=== PATIENT | female | born 1935 | race Caucasian/White ===

== ENCOUNTER 2016-10-27 03:30 | Inpatient (IN) | payer MEDICARE, OTHER ==
[2016-10-25 15:25] LABS: ASCORBIC ACID (UR NOT ORDER) NEG (NEG); BILIRUBIN, URINE NEGATIVE (NEG); KETONE, URINE NEGATIVE (NEG)
--- NOTE | ~2016-10-27 | DS ---
Discharge Summary [facility] [address] [place]. [address] NAME: NANCY GONZALES : 31 STATUS : DIS IN PAT#: [id number] AGE: 81 ADM/REG DATE : 10/27/16 MR#: [id number] REPORT SERV DATE: 11/05/16 DICTATED BY: MICAELA MEYERS DATE: 11/04/16 REPORT STATUS : Draft TRANSCRIBED BY: JOSELIN DATE: 11/04/16 Data Collection from hospitalization DISCHARGE DIAGNOSES: 1. Altered mental status - resolving. 2. Diarrhea - resolving. 3. Cough. 4. Possible community-acquired pneumonia. 5. Pyuria. 6. History of paroxysmal atrial fibrillation with anticoagulation therapy. 7. Parkinson's disease. 8. Anemia, secondary to chronic disease. 9. Hematuria. 10.Insomnia. 11.Urinary retention. 12.Anxiety and depression. 13.History of orthostatic hypotension. 14.Constipation. 15.History of paroxysmal atrial fibrillation. 16.Osteoarthritis. 17.Congestive heart failure. 18.Dementia. CONSULTATIONS: None. PROCEDURES: None. DISCHARGE MEDICATIONS: Eliquis 2.5 mg twice a day, aspirin 325 mg daily, Lipitor 80 mg at bedtime, Sinemet 1-1/2 tablets at noon, Sinemet one tablet at bedtime, Sinemet two tablets every morning, vitamin D3 of 1000 units daily, Cymbalta 60 mg daily, Zaditor one drop twice a day in both eyes, Levaquin 750 mg for six days as instructed, levothyroxine 150 mcg daily, Claritin 10 mg daily, Remeron 7.5 mg at bedtime, Singulair 10 mg daily, Prilosec 20 mg daily, MiraLAX powder one packet daily, Rythmol 150 mg every 8 hours, Spiriva HandiHaler one capsule via inhaler daily as instructed, ProAmatine 10 mg three times a day, Breo Ellipta one puff via inhaler daily, Ultram 25 mg every 8 hours as needed, DuoNeb inhaled solution one nebulized inhaler every four hours as instructed, MiraLAX suppository daily as needed for complaints of constipation. CONDITION AT DISCHARGE: Stable. DISPOSITION: The patient was discharged to [facility] on a mechanical soft diet with activities as instructed. HOSPITAL COURSE: This is an 81-year-old female who was transferred from [facility] to the [facility] Emergency Room for an altered mental status and increased confusion, low-grade fever, and cough. The patient had a decreased mental status, and we were unable to obtain a complete medical history, social history, or surgical history. The patient's director decision support reports that she was noted to have increased cough over the past few days prior to admission Discharge Summary [address] [place]. [address] NAME: NANCY GONZALES : 31 STATUS : DIS IN PAT#: [id number] AGE: 81 ADM/REG DATE : 10/27/16 MR#: [id number] REPORT SERV DATE: 11/05/16 DICTATED BY: MICAELA MEYERS DATE: 11/04/16 REPORT STATUS : Draft TRANSCRIBED BY: JOSELIN DATE: 11/04/16 and she had a low-grade fever on the day prior to this admission as well as a poor appetite and some diarrhea but this had improved. She had used MiraLAX. She reports that she was on several other laxatives such as milk of magnesia. The patient's director decision support also reported that she had been talking more and coherent on the day of this admission. She was admitted to the hospital at this time for further evaluation and treatment. Upon admission, the patient's urinalysis was positive, but I felt this could be secondary to dehydration. We would repeat the urinalysis once the patient has had IV fluid therapy. IV fluid therapy continued. It was changed from normal saline to D5 normal saline. Followup urine culture would be obtained. Azithromycin and Rocephin were continued for now. She was changed from a regular diet to a pureed diet for now. Aspiration precautions were in place. Rythmol was continued for heart rate and rhythm control. Protein supplementation will be given. The patient is a full code at this time. The following day, she had occasional shortness of breath and a productive cough. The patient denied any chest pain, nausea, vomiting, or abdominal pain. White count was 6.9. We encouraged oral fluid intake. On the 2nd, she seemed to be breathing better. She had no complaints of shortness of breath. She said she did not sleep well the previous evening. The patient requested that her Xanax be resumed at bedtime. IV fluids were decreased. Discharge planning was performed. On 10/30/2016, she said she had slept better the previous evening. She reported that her cough had improved, and she was bringing things up. Diarrhea was resolving. Her altered mental status was also resolving. Discharge instructions were given. MiraLAX was continued. She was evaluated by Physical Therapy. Due to her improved and stable condition, she was discharged to [facility] with the above-stated instructions. Information collected by: Gina Baxter I submit the above information as my discharge summary. SATNAM/JOSELIN Micaela Meyers M.D. / [id number] CC: [facility]
--- NOTE | ~2016-10-27 | HP ---
History And Physical [facility] [address] [place]. [address] NAME: NANCY GONZALES : 31 STATUS : ADM IN [facility]#: [id number] AGE: 81 ADM/REG DATE : 10/27/16 MR#: [id number] REPORT SERV DATE: 10/27/16 DICTATED BY: MICAELA MEYERS DATE: 10/27/16 REPORT STATUS : Draft TRANSCRIBED BY: JOSELIN DATE: 10/27/16 DATE OF ADMISSION: 10/27/2016 CHIEF COMPLAINT: Altered mental status. HISTORY OF PRESENT ILLNESS: The patient is an 81-year-old female, transferred from [facility] to [facility] ER for altered mental status, increased confusion, low-grade fever, and cough. The patient with decreased mental status, unable to obtain complete medical history, social history, surgical history. Most of the information obtained from reviewing medical records from previous admission to [facility] as well as channel process supervisor who is present at the bedside. The patient's channel process supervisor reports that the patient is noted to have increased cough in the last few days, had a low-grade fever yesterday, poor appetite, had complained of some diarrhea, but that has improved, and is okay with the use of MiraLAX. She reports she was on several other laxatives such as milk of magnesia. Spooling Supervisor also reports that the patient is talking more incoherent. The patient is well known to our service from previous hospitalization at [facility]. ALLERGIES: NO KNOWN DRUG ALLERGIES. CODE STATUS: Full code. This was confirmed by the patient's channel process supervisor. We will ensure a POLST form is completed and filed in chart. MEDICATIONS: Reviewed home medications. We will continue home med regimen of apixaban 2.5 mg b.i.d., Rythmol, aspirin, Lipitor, Sinemet, DuoNeb breathing treatment q.4 hours, Spiriva daily, Breo Ellipta inhalation daily, midodrine three times a day, Cymbalta, Remeron, Singulair, and Prilosec. PAST MEDICAL HISTORY: Positive for history of chest pain, valvular heart disease with mitral valve replacement, asthma, osteoarthritis, congestive heart failure, unknown type, dementia, Parkinson disease, hypothyroidism, lumbosacral radiculopathy, scoliosis, paroxysmal atrial fibrillation, on chronic anticoagulation with Eliquis, orthostatic hypotension with midodrine, anemia secondary to chronic disease. PAST SURGICAL HISTORY: 1. Mitral valve replacement. 2. Total abdominal hysterectomy sparing her ovaries. 3. Several foot surgeries due to contracture. 4. CABG in 2006. 5. Left ALYSSIA in 11/2015. SOCIAL HISTORY: The patient is . She is recently a resident of [facility]. Buddhist: [employer]. High-school education. No history of smoking. Previous history of social alcohol intake. History And Physical [address] [address] NAME: NANCY GONZALES : 31 STATUS : ADM IN [facility]#: [id number] AGE: 81 ADM/REG DATE : 10/27/16 MR#: [id number] REPORT SERV DATE: 10/27/16 DICTATED BY: MICAELA MEYERS DATE: 10/27/16 REPORT STATUS : Draft TRANSCRIBED BY: JOSELIN DATE: 10/27/16 FAMILY HISTORY: Positive for asthma, arthritis, lung cancer, diabetes, heart disease, and stroke. REVIEW OF SYSTEMS: This is obtained from channel process supervisor reports. The patient has had increased altered mental status, confusion, incoherently talking, and low-grade fever, cough in the last few days. She was treated with breathing treatment, but no antibiotic. Also, the patient with poor appetite since admitted in [facility]. Per channel process supervisor, the patient did have some wheezing and had increased cough for the last few days. Also had some issue with diarrhea since admitted to [facility], but this had improved since her laxatives were minimized only to MiraLAX. Spooling Supervisor reports the patient with BM last p.m. which was formed. No issue with vomiting noted. The patient has had a Carrasco placed only in the hospital. Has not had issue with urinating except the last few days, did complain of some burning. The patient's channel process supervisor reports the patient was tolerating some rehab at [facility] and reports that her low blood pressure has been stable on just her midodrine as scheduled. PHYSICAL EXAMINATION: VITAL SIGNS: Temp of 98.1, pulse of 94, respiratory rate 15, BP of 133/48. GENERAL: The patient is an elderly , lethargic but arousable, talking incoherently, and attempts to follow simple commands. ENT: Oral mucosa was somewhat moist. Lips were dry. Eyes PERRLA, nonicteric bilaterally. NECK: No jugular venous distention noted. Nasal cannula in use. CHEST: No deformity noted except for old sternal healed scar. LUNGS: Noted decreased breath sounds in bilateral bases, but no wheezing, symmetrical expansion noted. HEART: No murmurs noted. Regular rate and rhythm. ABDOMEN: Soft bowel sound noted, mild tenderness to palpation over epigastric and left lower quadrant, but no guarding. Carrasco in use, positive clear yellow urine. EXTREMITIES: No clubbing, cyanosis, or edema noted. Noted generalized arthritic changes in bilateral hands and feet. Noted left lower arm peripheral IV, dry and intact without redness. The patient's IV fluids are normal saline at 125 mL per hour. IMAGING: Chest x-ray on 10/27/2016 was compared to 09/29/2016 x-ray, which showed continued small left pleural effusion with left basilar atelectasis, noted new right basilar atelectasis. She is status post median sternotomy and heart valve replacement. LABORATORY DATA: Urinalysis obtained to catheter was cloudy, positive urine, with trace ketone, positive leukocytes, moderate, wbc was 39, bacteria occasional, had some rbc of 5, pending urine culture. CMP revealed sodium of 138, potassium 3.9, chloride 101, CO2 of 29, BUN 21, creatinine of 0.88, glucose of 88, GFR of 61. AST 11, bilirubin 0.4, total protein 6.0, ALT 9, albumin 2.7, alkaline phosphate of 74. WBC of 9.7, hemoglobin 9.1, hematocrit 28.9, platelet of 364. ASSESSMENT: 1. Altered mental status. 2. Possible community-acquired pneumonia. History And Physical [address] [address] NAME: NANCY GONZALES : 31 STATUS : ADM IN [facility]#: [id number] AGE: 81 ADM/REG DATE : 10/27/16 MR#: [id number] REPORT SERV DATE: 10/27/16 DICTATED BY: MICAELA MEYERS DATE: 10/27/16 REPORT STATUS : Draft TRANSCRIBED BY: MODL DATE: 10/27/16 3. Diarrhea. 4. Dehydration. 5. Hypoglycemia. 6. History of paroxysmal atrial fibrillation with chronic anticoagulation therapy. 7. Malnutrition, undetermined. 8. History of asthma. 9. History of Parkinson disease. 10.Hypothyroidism. 11.History of orthostatic hypotension. 12.Anemia secondary to chronic disease. 13.History of congestive heart failure, unsure type. 14.History of dementia. 15.History of valvular disease, status post mitral valve replacement. PLAN: 1. Reviewed urinalysis today. The patient's urinalysis is positive, but could be secondary to dehydration. The patient with some trace ketone. We will plan to repeat urinalysis since the patient has had IV fluid therapy. We will continue IV fluid therapy except change from normal saline to D5 normal saline given the patient's low serum glucose secondary to poor p.o. intake. We will follow up on urine culture; for now, it is pending. We will continue current regimen of azithromycin and Rocephin. The patient with no fever and admission WBC is 9.7. Reviewed chest x-ray results. The patient with history of chronic small left pleural effusion, but does have a new right basilar atelectasis, question pneumonia. We will follow up chest x-ray. The patient is at risk for sepsis. 2. The patient with pyuria/urinary retention. The patient is currently with Carrasco. We will continue Carrasco care and monitor I and O. The patient's urine appears to look good now given the patient received IV fluid therapy. The patient is at risk for UTI. 3. We will closely monitor the patient's blood sugar given poor p.o. intake. We will ensure the patient has some D5 in her IV fluids to maintain her glucose. The patient is at risk for further hypoglycemia. We will place the patient on hypoglycemia protocol if needed, but hopefully once the patient is more awake and with improvement of her p.o. intake, this will not be an issue. The patient is not as alert but does attempt to talk and wakes up when stimulated. We will change p.o. diet from regular to pureed for now and place the patient on aspiration precaution. The patient is at risk for aspiration. 4. Reviewed home medications and reconciled most home medications. Hopefully, the patient will be alert enough to take p.o. medications. If needed, Nursing can crush and give it with pudding or apple sauce. 5. We will continue to monitor heart rate and blood pressure. Continue Eliquis for anticoagulation therapy and we will obtain INR and PT in a.m. for baseline. Closely monitor for any signs and symptoms of bleeding. The patient is at risk for RVR with history of PAF and at risk for bleeding. We will continue Rythmol for heart rate and rhythm control. 6. We will continue to monitor sat O2 to maintain nasal cannula O2 to keep the patient's sat O2 greater or equal to 90%. Continue current breathing treatment and home regimen of Spiriva, Singulair, and Breo. The patient is at risk for asthma exacerbation. History And Physical [place] [id number] [facility] [place]. [address] NAME: NANCY GONZALES : 31 STATUS : ADM IN [facility]#: [id number] AGE: 81 ADM/REG DATE : 10/27/16 MR#: [id number] REPORT SERV DATE: 10/27/16 DICTATED BY: MICAELA MEYERS DATE: 10/27/16 REPORT STATUS : Draft TRANSCRIBED BY: JOSELIN DATE: 10/27/16 7. Given the patient's poor p.o. intake, likely malnourished, unsure severity, we will check prealbumin with a.m. labs. Provide p.o. protein supplement minimally twice a day if not more. The patient is at risk for poor recovery/further hypoglycemia/skin breakdown from malnutrition and for rehab. 8. We will continue the med regimen for Parkinson disease as well as dementia. Discussed code status with channel process supervisor since she is very familiar with the patient and reports that family members continue to desire the patient to be in full code. We will confirm this with family members and complete POLST form and file in chart. Once the patient's medical condition is more stable and if antibiotics needs to continue, we will plan to transfer the patient back to [facility]. DICTATED BY: Prince Newman/JOSELIN Micaela Meyers M.D. / [id number] CC: Prince Britton[facility]
[~2016-10-27 03:30] MED LIST: 8 HOUR650 MG PO; ACIDOPHILU2 PO; ADVAIR100 INH; ADVAIR250 INH; ALIGN4 MG PO; AMITIZA24 PO; ARICEPT10 PO; B121000P IM; BACDS PO; BREO ELLIPTA INH; CALCIUM CITRATE 950 MG PO; CYMBALTA30 PO; CYMBALTA60 PO; ELIQUIS 5 MG TAB5 MG PO; FISH-EPA1000 MG PO; L20 PO; LEVAQUIN5T PO; LEVOTHYROXIN137 MCG PO; MELA3 PO; MIRALAXPKT PO; MIRAPEX0.75 MG PO; MOMUD PO; NORV5 PO; NYS500UDL PO; OS500+D PO; PRILO PO; PROAMATINE10 MG PO; PROTONIX PO; PROVHFA INH; RYTHMOL150 MG PO; SIN25 PO; SINGULAIR1 PO; SPIRIVA INH; SYN125 PO; T PO; TUMSROLL PO; VITAMIN D1000 UNI1 PO; VITD PO; X5 PO; Z-PAK PO; ZADITOR0.025 % OPH; ZOFRAN4 PO
[2016-10-27 03:41] LABS: BASOPHILS 0.2 %; BASOPHILS ABSOLUTE 0.02 10/3/uL (0.0-0.16); EOSINOPHILS 1.4 %; EOSINOPHILS ABSOLUTE 0.14 10/3/uL (0.0-0.53); ER CBC TAT 0 Hrs 05 Mins; HEMOGLOBIN 9.1 g/dL (12.0-16.0); IMMATURE GRANULOCYTES 0.6 %; IMMATURE GRANULOCYTES ABSOLUTE 0.06 10/3/uL (0.0-0.11); LYMPHOCYTES 22.4 %; LYMPHOCYTES ABSOLUTE 2.16 10/3/uL (0.67-4.30); MEAN CORPUS HGB CONC 31.5 g/dL (32.0-36.0); MEAN CORPUSCULAR VOLUME 88.9 fL (80-100); MEAN PLATELET VOLUME 8.5 fL (9.2-13.0); MONOCYTES 11.8 %; MONOCYTES ABSOLUTE 1.14 10/3/uL (0.21-1.20); NEUTROPHILS 63.6 %; NEUTROPHILS ABSOLUTE 6.14 10/3/uL (2.02-8.40); PLATELET COUNT 364 10/3/uL (150-400); RBC DISTRIBUTION WIDTH 17.4 % (12.0-16.0); RED CELL COUNT 3.25 10/6/uL (4.0-5.6); WHITE BLOOD CELLS 9.7 10/3/uL (4.5-10.5)
[2016-10-27 03:44] LABS: HEMATOCRIT 28.9 % (36.0-48.0); MANUAL DIFF NO %
[2016-10-27 03:45] LABS: ASCORBIC ACID (UR NOT ORDER) NEG (NEG); BILIRUBIN, URINE NEGATIVE (NEG); ER URINALYSIS TAT 0 Hrs 00 Mins; KETONE, URINE TRACE MG/DL (NEG); LEUKOCYTE ESTERASE(NOT OR MOD (NEG); NITRITE (URINE) NEG (NEG); WBC (NOT ORDERED) (RFLEX) 39 (0-5)
[2016-10-27 03:57] LABS: A/G RATIO 0.8 (0.7-1.9); ALBUMIN 2.7 G/DL (3.5-5.0); BUN (BLOOD UREA NITROGEN) 21 MG/DL (6-23); CALCIUM, SERUM 8.3 MG/DL (8.5-10.4); CHLORIDE, SERUM 101 MMOL/L (96-112); CO2 (CARBON DIOXIDE) 29 MMOL/L (24-34); CREATININE 0.88 MG/DL (0.55-1.02); GFR AFRICAN AMERICAN 70 ML/MIN (>=60); GFR NON AFRICAN AMERICAN 61 ML/MIN (>=60); GLOBULIN 3.3 G/DL (2.5-4.1); GLUCOSE, SERUM 88 MG/DL (60-99); POTASSIUM, SERUM 3.9 MMOL/L (3.5-5.3); SGOT(AST) 11 U/L (5-40); SGPT(ALT) 9 U/L (5-65); SODIUM, SERUM 138 MMOL/L (135-148); TOTAL BILIRUBIN 0.4 MG/DL (0-1.2)
[2016-10-27 03:59] LABS: ALKALINE PHOSPHATASE 74 U/L (45-117)
[2016-10-27] MEDS ORDERED: ELIQUIS 2.5 MG2.5 MG PO (11:20)
[2016-10-27] MEDS ORDERED: SIN25 PO ×3 (11:23→11:44)
[2016-10-27] MEDS ORDERED: VITAMIN D31000 UNIT PO (11:26)
[2016-10-27] MEDS ORDERED: PRILO PO (11:27)
[2016-10-27] MEDS ORDERED: LEVOTHYROXIN150 MCG PO (11:27)
[2016-10-27] MEDS ORDERED: PROAMATINE10 MG PO (11:28)
[2016-10-27] MEDS ORDERED: BREO ELLIPTA INH (11:29)
[2016-10-27] MEDS ORDERED: LIPITOR80 MG PO (11:29)
[2016-10-27] MEDS ORDERED: ULTRAM50 PO (11:32)
[2016-10-27] MEDS ORDERED: CYMBALTA60 PO (11:32)
[2016-10-27] MEDS ORDERED: REM15 PO (11:33)
[2016-10-27] MEDS ORDERED: DUONEB INH (11:35)
[2016-10-27] MEDS ORDERED: MIRALAX POWDER1 PKT PO (11:36)
[2016-10-27] MEDS ORDERED: RYTHMOL150 MG PO (11:37)
[2016-10-27] MEDS ORDERED: SPIRIVA INH (11:38)
[2016-10-27] MEDS ORDERED: ARICEPT10 PO (11:39)
[2016-10-27] MEDS ORDERED: SINGULAIR1 PO (11:41)
[2016-10-27] MEDS ORDERED: ZADITOR0.025 % OPH (11:41)
[2016-10-27] MEDS ORDERED: ASA5GR PO (11:42)
[2016-10-28 05:26] LABS: BASOPHILS 0.1 %; BASOPHILS ABSOLUTE 0.01 10/3/uL (0.0-0.16); EOSINOPHILS 2.4 %; EOSINOPHILS ABSOLUTE 0.17 10/3/uL (0.0-0.53); HEMATOCRIT 27.4 % (36.0-48.0); HEMOGLOBIN 8.5 g/dL (12.0-16.0); IMMATURE GRANULOCYTES 0.7 %; IMMATURE GRANULOCYTES ABSOLUTE 0.05 10/3/uL (0.0-0.11); LYMPHOCYTES 26.7 %; LYMPHOCYTES ABSOLUTE 1.85 10/3/uL (0.67-4.30); MEAN CORPUSCULAR HEMOGLOB 28.1 pg (26.0-34.0); MEAN CORPUSCULAR VOLUME 90.4 fL (80-100); MEAN PLATELET VOLUME 8.9 fL (9.2-13.0); MONOCYTES 12.2 %; MONOCYTES ABSOLUTE 0.85 10/3/uL (0.21-1.20); NEUTROPHILS 57.9 %; NEUTROPHILS ABSOLUTE 4.01 10/3/uL (2.02-8.40); PLATELET COUNT 366 10/3/uL (150-400); RBC DISTRIBUTION WIDTH 17.8 % (12.0-16.0); RED CELL COUNT 3.03 10/6/uL (4.0-5.6); WHITE BLOOD CELLS 6.9 10/3/uL (4.5-10.5)
[2016-10-28 05:28] LABS: MANUAL DIFF NO %
[2016-10-28 05:51] LABS: CALCIUM, SERUM 8.1 MG/DL (8.5-10.4); CHLORIDE, SERUM 111 MMOL/L (96-112); CO2 (CARBON DIOXIDE) 28 MMOL/L (24-34); CREATININE 0.67 MG/DL (0.55-1.02); GFR AFRICAN AMERICAN 94 ML/MIN (>=60); GFR NON AFRICAN AMERICAN 81 ML/MIN (>=60); GLUCOSE, SERUM 92 MG/DL (60-99); PREALBUMIN 13.9 MG/DL (17.0-43.0)
[2016-10-28 05:54] LABS: BUN (BLOOD UREA NITROGEN) 11 MG/DL (6-23); SODIUM, SERUM 146 MMOL/L (135-148); ULTRASENSITIVE TSH 0.972 MCIU/ML (0.358-3.740)
[2016-10-29 06:13] LABS: INTERNATIONAL NORMAL RATI 1.2 UNITS (-)
[2016-10-29 06:16] LABS: BUN (BLOOD UREA NITROGEN) 10 MG/DL (6-23); CALCIUM, SERUM 8.2 MG/DL (8.5-10.4); CHLORIDE, SERUM 108 MMOL/L (96-112); CO2 (CARBON DIOXIDE) 28 MMOL/L (24-34); CREATININE 0.62 MG/DL (0.55-1.02); GFR AFRICAN AMERICAN 97 ML/MIN (>=60); GFR NON AFRICAN AMERICAN 83 ML/MIN (>=60); GLUCOSE, SERUM 96 MG/DL (60-99); POTASSIUM, SERUM 3.9 MMOL/L (3.5-5.3); SODIUM, SERUM 144 MMOL/L (135-148)
[2016-10-29 06:21] LABS: BASOPHILS 0.1 %; BASOPHILS ABSOLUTE 0.01 10/3/uL (0.0-0.16); EOSINOPHILS ABSOLUTE 0.24 10/3/uL (0.0-0.53); HEMATOCRIT 27.5 % (36.0-48.0); HEMOGLOBIN 8.5 g/dL (12.0-16.0); IMMATURE GRANULOCYTES 1.3 %; LYMPHOCYTES 27.1 %; LYMPHOCYTES ABSOLUTE 2.14 10/3/uL (0.67-4.30); MEAN CORPUS HGB CONC 30.9 g/dL (32.0-36.0); MEAN CORPUSCULAR HEMOGLOB 27.2 pg (26.0-34.0); MEAN CORPUSCULAR VOLUME 88.1 fL (80-100); MEAN PLATELET VOLUME 8.6 fL (9.2-13.0); MONOCYTES 12.2 %; MONOCYTES ABSOLUTE 0.96 10/3/uL (0.21-1.20); NEUTROPHILS 56.3 %; NEUTROPHILS ABSOLUTE 4.44 10/3/uL (2.02-8.40); PLATELET COUNT 347 10/3/uL (150-400); RBC DISTRIBUTION WIDTH 17.4 % (12.0-16.0); RED CELL COUNT 3.12 10/6/uL (4.0-5.6); WHITE BLOOD CELLS 7.9 10/3/uL (4.5-10.5)
[2016-10-29 06:23] LABS: MANUAL DIFF NO %
[2016-10-29 11:34] LABS: ASCORBIC ACID (UR NOT ORDER) NEG (NEG); BILIRUBIN, URINE NEGATIVE (NEG); KETONE, URINE NEGATIVE (NEG); LEUKOCYTE ESTERASE(NOT OR TRACE (NEG); WBC (NOT ORDERED) (RFLEX) 34 (0-5)
== END 2016-10-30 14:11 | DRG 193 ==
LOC: ER 03:30 → 4SO 05:26
PROVIDERS: Family Medicine; Nurse Practitioner Acute Care; Nurse Practitioner Family
DX: J18.9 Pneumonia, unspecified organism (principal); G93.41 Metabolic encephalopathy; J90 Pleural effusion, not elsewhere classified; E46 Unspecified protein-calorie malnutrition; I50.9 Heart failure, unspecified; I48.0 Paroxysmal atrial fibrillation; N39.0 Urinary tract infection, site not specified; G20 Parkinson's disease; I10 Essential (primary) hypertension; J98.11 Atelectasis; F02.80 Dementia in other diseases classified elsewhere, unspecified severity, without behavioral disturbance, psychotic disturbance, mood disturbance, and anxiety; K59.00 Constipation, unspecified; E86.0 Dehydration; R33.9 Retention of urine, unspecified; I25.10 Atherosclerotic heart disease of native coronary artery without angina pectoris; M19.90 Unspecified osteoarthritis, unspecified site; E16.2 Hypoglycemia, unspecified; J45.909 Unspecified asthma, uncomplicated; G47.00 Insomnia, unspecified; I34.0 Nonrheumatic mitral (valve) insufficiency; E03.9 Hypothyroidism, unspecified; I95.1 Orthostatic hypotension; D63.8 Anemia in other chronic diseases classified elsewhere; F32.9 Major depressive disorder, single episode, unspecified; F41.9 Anxiety disorder, unspecified; Z79.01 Long term (current) use of anticoagulants; Z98.890 Other specified postprocedural states; Z95.1 Presence of aortocoronary bypass graft; Z95.2 Presence of prosthetic heart valve; R31.9 Hematuria, unspecified
CPT/HCPCS: 71010; 80048; 80053; 81001; 83605; 84134; 84443; 85025; 85610; 87040; 87086; 93005; 94640; 97161-GP; 99285; A9270-GY; G8978-CL-GP; G8979-CJ-GP; J0456; J2405